=== PATIENT | male | born 1985 | race Caucasian/White ===

== ENCOUNTER 2019-05-23 10:04 | Emergency (ER) | payer BC ==
[2019-05-23 10:11] VITALS: PULSE 104
[2019-05-23] MEDS ORDERED: ACETAMINOPHEN TAB 325 MG TAB PO STA (10:47)
--- NOTE | 2019-05-23 11:17 | ED ---
Fever HPI - General Chief Complaint: Fever Stated Complaint: fever/cough Time Seen by Provider: 05/23/19 10:10 Source: patient Mode of arrival: ambulatory Limitations: no limitations - History of Present Illness Initial Comments: The patient is a 34-year-old male with no past medical history presents the emergency room with reported cough, congestion and fever since last night. 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 States he's had exposure to prisoners that have tested positive for covid. He did take some Tylenol around midnight last night for his fever. Denies any shortness of breath or respiratory insufficiency. No previous history of asthma or smoking. He denies headaches, nausea, vomiting, diarrhea or abdominal pain. Denies productive cough. No chest pain or ripping or tearing sensation to his back. There are no other alleviating, precipitating or modifying factors - Related Data Home Medications Medication Instructions Recorded Confirmed Acetaminophen Tab [Tylenol Tab] 1,000 mg PO Q6HR PRN 05/23/19 05/23/19 Atenolol [Tenormin] 25 mg PO DAILY 05/23/19 05/23/19 Lisinopril-Hctz 20-25 mg 1 tab PO DAILY 05/23/19 05/23/19 [Zestoretic 20-25] Multivitamins, Thera [Multivitamin 1 tab PO DAILY 05/23/19 05/23/19 (formulary)] Allergies Allergy/AdvReac Type Severity Reaction Status Date / Time amoxicillin [From Augmentin] AdvReac Nausea & Verified 05/23/19 10:27 Vomiting clavulanic acid AdvReac Nausea & Verified 05/23/19 10:27 [From Augmentin] Vomiting Review of Systems ROS Statement: Those systems with pertinent positive or pertinent negative responses have been documented in the HPI. ROS Other: All systems not noted in ROS Statement are negative. Past Medical History Past Medical History: Hypertension History of Any Multi-Drug Resistant Organisms: None Reported Past Surgical History: No Surgical Hx Reported Past Psychological History: No Psychological Hx Reported Smoking Status: Never smoker Past Alcohol Use History: Occasional Past Drug Use History: None Reported General Exam Limitations: no limitations General appearance: alert, in no apparent distress Head exam: Present: atraumatic, normocephalic, normal inspection Eye exam: Present: normal appearance, PERRL, EOMI. Absent: scleral icterus, conjunctival injection, periorbital swelling ENT exam: Present: normal exam, mucous membranes moist Neck exam: Present: normal inspection. Absent: tenderness, meningismus, lymphadenopathy Respiratory exam: Present: normal lung sounds bilaterally. Absent: respiratory distress, wheezes, rales, rhonchi, stridor Cardiovascular Exam: Present: normal rhythm, tachycardia, normal heart sounds. Absent: systolic murmur, diastolic murmur, rubs, gallop, clicks GI/Abdominal exam: Present: soft, normal bowel sounds. Absent: distended, tenderness, guarding, rebound, rigid Extremities exam: Present: normal inspection, full ROM, normal capillary refill. Absent: tenderness, pedal edema, joint swelling, calf tenderness Back exam: Present: normal inspection Neurological exam: Present: alert, oriented X3, CN II-XII intact Psychiatric exam: Present: normal affect, normal mood Skin exam: Present: warm, dry, intact, normal color. Absent: rash Course Vital Signs 05/23/19 05/23/19 10:09 12:02 Temperature 100.4 F H 99.6 F Pulse Rate 104 H 104 H Respiratory 19 18 Rate Blood Pressure 153/94 149/87 O2 Sat by Pulse 97 94 L Oximetry Medical Decision Making - Medical Decision Making Upon arrival patient is placed in room 8. A thorough history and physical exam is performed. The patient is given Tylenol for his fever. A portable chest x- rays performed which demonstrates right lower lobe atelectasis. Influenza A and B testing are negative. The patient swab is then sent for Covid testing. I did inform the patient that with his current symptoms that he should isolate himself and not work. The patient's test results will be back within 48 hours. Health department will inform him of positive results. The patient does present to the ER with mild symptoms. No signs of respiratory distress. I informed the patient that if any time he does have worsening of his symptoms that he return to the emergency department. The patient understood this. He was given written and verbal discharge instructions and discharged home in stable condition - Lab Data Lab Results 05/23/19 05/23/19 Range/Units 10:51 10:51 Coronavirus (PCR) Detected H (Not Detected) Influenza Type A RNA Not Detected (Not Detectd) Influenza Type B (PCR) Not Detected (Not Detectd) Disposition Clinical Impression: Cough Disposition: HOME SELF-CARE Condition: Stable Instructions (If sedation given, give patient instructions): Upper Respiratory Infection (ED) Additional Instructions: Your test results should be ready within the next 48 hours. You will be called with positive results. At this time I recommend that you isolate yourself. Take Tylenol every 8 hours as needed for fever. Return to the emergency room for any new or worsening symptoms Is patient prescribed a controlled substance at d/c from ED?: No Referrals: Danie Washington MD [Primary Care Provider] - 1-2 days Time of Disposition: 11:45
--- NOTE | 2019-05-23 11:26 | XR ---
EXAMINATION TYPE: XR chest 1V portable DATE OF EXAM: 05/23/2019 Comparison: None Clinical History: 34-year-old male cough, shortness of breath Findings: Heart normal size. Aorta and pulmonary vasculature within normal limits. Some strandy atelectasis at the right base. No maryann consolidation or pleural effusion. Impression: Some strandy right basilar atelectasis is suggested. No definite acute process otherwise seen.
[2019-05-23 12:34] VITALS: BP 149/87; RESP 18; TEMP 99.6
== END 2019-05-23 12:04 | disposition home or self-care (01) ==
LOC: EC 10:04
DX: U07.1 COVID-19 (principal); J98.11 Atelectasis; I10 Essential (primary) hypertension; Z79.899 Other long term (current) drug therapy; Z88.0 Allergy status to penicillin
CPT/HCPCS: 71045; 87502; 87635; 99283